=== PATIENT | female | born 1960 | race Caucasian/White ===

== ENCOUNTER → 2020-08-04 10:15 | Outpatient (BNVA) | payer MEDICARE, OTHER, SELFPAY | PROVIDERS: Visit Provider Internal Medicine | DX: E11.59 Type 2 diabetes mellitus with other circulatory complications (principal); I25.10 Atherosclerotic heart disease of native coronary artery without angina pectoris; E11.649 Type 2 diabetes mellitus with hypoglycemia without coma; E11.65 Type 2 diabetes mellitus with hyperglycemia; E78.2 Mixed hyperlipidemia; I10 Essential (primary) hypertension; K75.4 Autoimmune hepatitis; R63.5 Abnormal weight gain; E11.9 Type 2 diabetes mellitus without complications; E78.5 Hyperlipidemia, unspecified; K76.0 Fatty (change of) liver, not elsewhere classified | CPT/HCPCS: 36415; 80053; 80061; 82044; 83036; 84439; 84443; 99204 ==

== ENCOUNTER 2020-08-04 11:26 | Outpatient (CLI) | payer MEDICARE, OTHER, SELFPAY ==
[2020-08-04 12:29] LABS: Creatinine Urine, Random 150 mg/dL (28-217)
[2020-08-04 12:30] LABS: Microalbum Creatinine Ratio Ur 7 mg/dL (0-20); Microalbumin Random Urine 1 ug/dL (0-20)
[2020-08-04 12:47] LABS: Alanine Aminotransferase 57 U/L (0-33); Albumin Level 4.2 g/dL (3.5-5.2); Alkaline Phosphatase 127 IU/L (35-105); Anion Gap 13.5 (5-19); Aspartate Amino Transferase 52 U/L (0-32); Blood Urea Nitrogen 18 mg/dL (8-23); Calcium 9.6 mg/dL (8.5-10.5); Carbon Dioxide 28 mmol/L (22-29); Chloride 105 mmol/L (98-107); Cholesterol 105 mg/dL (0-200); Free T4 Free Thyroxine 1.34 ng/dL (0.82-1.77); Globulin 3.3 g/dL (1.3-4.6); Glomerular Filtration Rate 50.3 mL/min (90-130); Glucose 165 mg/dL (65-115); HDL Cholesterol 35 mg/dL (60-100); LDL Cholesterol Calculated 49 mg/dL (50-129); Osmolality Calculated 300 mOsm/kg (285-295); Potassium 4.5 mmol/L (3.5-5.1); Sodium 142 mmol/L (136-145); Thyroid Stimulating Hormone 2.32 uIU/mL (0.27-4.20); Total Bilirubin 0.5 mg/dL (0.15-1.2); Total Protein 7.5 g/dL (6.6-8.7); Triglycerides 103 mg/dL (0-150)
[2020-08-04 13:29] LABS: Estmated Average Glucose 163; Hemoglobin A1C 7.3 % (4.0-6.0)
== END 2020-08-04 11:27 | disposition home or self-care (01) ==
LOC: LAB 11:32
PROVIDERS: Visit Provider Internal Medicine
DX: E11.9 Type 2 diabetes mellitus without complications (principal); E78.5 Hyperlipidemia, unspecified; K76.0 Fatty (change of) liver, not elsewhere classified; R63.5 Abnormal weight gain
CPT/HCPCS: 36415; 80053; 80061; 82044; 83036; 84439; 84443

== ENCOUNTER 2020-09-26 08:16 | Outpatient (CLI) | payer MEDICARE, OTHER, SELFPAY ==
--- NOTE | 2020-09-26 08:45 | US_ITS ---
WS: [id number] RIGHT UPPER QUADRANT ULTRASOUND HISTORY: K75.4 - Autoimmune hepatitis COMPARISON: None available. Liver: 18.3 cm in length. Mildly enlarged liver with hepatic steatosis. No mass or bile duct dilatati on. Gallbladder: Prior cholecystectomy. CBD: 0.7 cm Pancreas: Normal size and echogenicity. Right kidney: 10.9 cm in length. Normal size and echogenicity. No hydronephrosis or mass. Aorta and IVC: Unremarkable abdominal aorta and IVC. No ascites. US/US liver [id number] IMPRESSION: Mild hepatomegaly. Prior cholecystectomy.
== END 2020-09-26 08:17 | disposition home or self-care (01) ==
LOC: US 08:17
PROVIDERS: PCP Internal Medicine; Visit Provider Internal Medicine
DX: K75.4 Autoimmune hepatitis (principal); R16.0 Hepatomegaly, not elsewhere classified; Z90.49 Acquired absence of other specified parts of digestive tract
CPT/HCPCS: 76705

== ENCOUNTER → 2020-11-04 09:52 | Outpatient (BNVA) | payer MEDICARE, OTHER, SELFPAY | PROVIDERS: PCP Internal Medicine; Visit Provider Internal Medicine | DX: E11.59 Type 2 diabetes mellitus with other circulatory complications (principal); I25.10 Atherosclerotic heart disease of native coronary artery without angina pectoris; E11.649 Type 2 diabetes mellitus with hypoglycemia without coma; E11.65 Type 2 diabetes mellitus with hyperglycemia; Z79.4 Long term (current) use of insulin; E78.2 Mixed hyperlipidemia; I10 Essential (primary) hypertension; K75.4 Autoimmune hepatitis; K76.0 Fatty (change of) liver, not elsewhere classified; R63.5 Abnormal weight gain | CPT/HCPCS: 99215 ==

== ENCOUNTER 2021-07-03 11:27 | Outpatient (CLI) | payer MEDICARE, OTHER, SELFPAY ==
[2021-07-03 12:17] LABS: Estmated Average Glucose 154
[2021-07-03 13:01] LABS: Alanine Aminotransferase 72 U/L (0-33); Albumin Level 3.8 g/dL (3.5-5.2); Alkaline Phosphatase 139 IU/L (35-105); Anion Gap 12.3 (5-19); Aspartate Amino Transferase 53 U/L (0-32); Blood Urea Nitrogen 16 mg/dL (8-23); Calcium 8.9 mg/dL (8.5-10.5); Carbon Dioxide 29 mmol/L (22-29); Chloride 101 mmol/L (98-107); Globulin 3.2 g/dL (1.3-4.6); Glomerular Filtration Rate 84.5 mL/min (90-130); Glucose 110 mg/dL (65-115); Osmolality Calculated 288 mOsm/kg (285-295); Potassium 4.3 mmol/L (3.5-5.1); Sodium 138 mmol/L (136-145); Total Bilirubin 0.4 mg/dL (0.15-1.2)
== END 2021-07-03 11:28 | disposition home or self-care (01) ==
LOC: LAB 11:33
PROVIDERS: PCP Internal Medicine; Visit Provider Internal Medicine
DX: E11.65 Type 2 diabetes mellitus with hyperglycemia (principal); K75.4 Autoimmune hepatitis; R63.5 Abnormal weight gain; Z79.4 Long term (current) use of insulin
CPT/HCPCS: 80053; 83036; 84443

== ENCOUNTER → 2021-08-17 13:15 | Outpatient (BNVA) | payer MEDICARE, OTHER, SELFPAY | PROVIDERS: PCP Internal Medicine; Visit Provider Internal Medicine | DX: E11.65 Type 2 diabetes mellitus with hyperglycemia (principal); E11.59 Type 2 diabetes mellitus with other circulatory complications; I25.10 Atherosclerotic heart disease of native coronary artery without angina pectoris; K76.0 Fatty (change of) liver, not elsewhere classified; R63.5 Abnormal weight gain; E78.2 Mixed hyperlipidemia; K75.4 Autoimmune hepatitis; Z79.4 Long term (current) use of insulin; Z68.36 Body mass index [BMI] 36.0-36.9, adult | CPT/HCPCS: 99214 ==

== ENCOUNTER 2021-10-29 12:37 | Outpatient (CLI) | payer MEDICARE, OTHER, SELFPAY ==
--- NOTE | 2021-10-29 13:00 | MR_ITS ---
WS: [id number] MRI LEFT SHOULDER NONCONTRAST TECHNIQUE: Sagittal T2, coronal T1, T2 and proton density imaging. Axial gradient PDE imaging. CLINICAL INFORMATION: Ongoing shoulder pain despite steroid injections. COMPARISON: None. FINDINGS: Moderate degenerative arthritis AC joint with mild edema and fluid. Mild downsloping acromion. Slight subacromial spurring. Slight impingement on the distal supraspinatus. Tiny insertional cyst tear distal supraspinatus. Tend inopathy distal supraspinatus with mild chronic thinning. Normal infraspinatus. Normal teres minor. N ormal subscapularis. Normal biceps tendon in the bicipital groove. Normal intra-articular biceps tendon. Glenoid labrum ap pears grossly normal. Normal bone marrow signal in the humerus and glenoid. Normal soft tissues. No o ther significant findings. MR/MR shoulder LT con* [id number] IMPRESSION: 1. Moderate degenerative arthritis at the AC joint with mild edema. Small amou nt of fluid at the AC joint. Slight subacromial spurring. 2. Tiny insertional tear at the supraspinatus distally. Mild tendinopathy dist al supraspinatus with chronic thinning. 3. Rotator cuff is otherwise normal. No high-grade tears. 4. Normal biceps tendon in the bicipital groove. Normal intra-articular biceps tendon. 5. Glenoid labrum appears grossly normal. Normal biceps labral anchor. 6. No other significant findings.
== END 2021-10-29 12:38 | disposition home or self-care (01) ==
LOC: RADSHAW 12:47
PROVIDERS: PCP Internal Medicine; Visit Provider Internal Medicine
DX: M19.012 Primary osteoarthritis, left shoulder (principal); M75.102 Unspecified rotator cuff tear or rupture of left shoulder, not specified as traumatic
CPT/HCPCS: 73221

== ENCOUNTER → 2021-12-14 14:54 | Outpatient (BNVA) | payer MEDICARE, OTHER, SELFPAY | PROVIDERS: PCP Internal Medicine; Visit Provider Internal Medicine | DX: E11.65 Type 2 diabetes mellitus with hyperglycemia (principal); E11.59 Type 2 diabetes mellitus with other circulatory complications; I25.10 Atherosclerotic heart disease of native coronary artery without angina pectoris; K76.0 Fatty (change of) liver, not elsewhere classified; R63.5 Abnormal weight gain; E78.2 Mixed hyperlipidemia; K75.4 Autoimmune hepatitis; Z79.4 Long term (current) use of insulin; Z68.37 Body mass index [BMI] 37.0-37.9, adult | CPT/HCPCS: 99214 ==

== ENCOUNTER → 2021-12-31 13:23 | Outpatient (BNVA) | payer MEDICARE, OTHER, SELFPAY | PROVIDERS: PCP Internal Medicine; Visit Provider Internal Medicine | DX: E11.649 Type 2 diabetes mellitus with hypoglycemia without coma (principal); E11.65 Type 2 diabetes mellitus with hyperglycemia; E11.59 Type 2 diabetes mellitus with other circulatory complications; I25.10 Atherosclerotic heart disease of native coronary artery without angina pectoris; K76.0 Fatty (change of) liver, not elsewhere classified; R63.5 Abnormal weight gain; E78.2 Mixed hyperlipidemia; K75.4 Autoimmune hepatitis; Z68.37 Body mass index [BMI] 37.0-37.9, adult; Z79.4 Long term (current) use of insulin | CPT/HCPCS: 99214 ==

== ENCOUNTER → 2022-02-10 13:44 | Outpatient (BNVA) | payer MEDICARE, OTHER, SELFPAY | PROVIDERS: PCP Internal Medicine; Visit Provider Internal Medicine | DX: E11.649 Type 2 diabetes mellitus with hypoglycemia without coma (principal); E11.65 Type 2 diabetes mellitus with hyperglycemia; E11.59 Type 2 diabetes mellitus with other circulatory complications; I25.10 Atherosclerotic heart disease of native coronary artery without angina pectoris; K76.0 Fatty (change of) liver, not elsewhere classified; E78.2 Mixed hyperlipidemia; K75.4 Autoimmune hepatitis; R63.5 Abnormal weight gain; Z68.38 Body mass index [BMI] 38.0-38.9, adult; Z79.4 Long term (current) use of insulin | CPT/HCPCS: 99214 ==

== ENCOUNTER → 2022-04-06 13:24 | Outpatient (BNVA) | payer MEDICARE, OTHER, SELFPAY | PROVIDERS: PCP Internal Medicine; Visit Provider Internal Medicine | DX: E11.65 Type 2 diabetes mellitus with hyperglycemia (principal); E11.649 Type 2 diabetes mellitus with hypoglycemia without coma; E11.59 Type 2 diabetes mellitus with other circulatory complications; E78.2 Mixed hyperlipidemia; I25.10 Atherosclerotic heart disease of native coronary artery without angina pectoris; K76.0 Fatty (change of) liver, not elsewhere classified; R63.5 Abnormal weight gain; K75.4 Autoimmune hepatitis; Z79.4 Long term (current) use of insulin; Z68.38 Body mass index [BMI] 38.0-38.9, adult | CPT/HCPCS: 80053; 80061; 83036; 99214 ==

== ENCOUNTER → 2022-07-13 08:58 | Outpatient (BNVA) | payer MEDICARE, OTHER, SELFPAY | PROVIDERS: PCP Internal Medicine; Visit Provider Internal Medicine | DX: E11.649 Type 2 diabetes mellitus with hypoglycemia without coma (principal); E11.65 Type 2 diabetes mellitus with hyperglycemia; E11.59 Type 2 diabetes mellitus with other circulatory complications; I25.10 Atherosclerotic heart disease of native coronary artery without angina pectoris; K76.0 Fatty (change of) liver, not elsewhere classified; R63.5 Abnormal weight gain; E78.2 Mixed hyperlipidemia; K75.4 Autoimmune hepatitis; Z79.4 Long term (current) use of insulin; Z68.36 Body mass index [BMI] 36.0-36.9, adult | CPT/HCPCS: 99214 ==

== ENCOUNTER 2022-09-16 10:43 | Outpatient (CLI) | payer MEDICARE, OTHER, SELFPAY ==
--- NOTE | 2022-09-16 12:20 | XRR_ITS ---
PROCEDURE INFORMATION: Exam: XR Chest Exam date and time: 09/16/2022 12:21 PM Age: 62 years old Clinical indication: Cough; Prior surgery; Surgery type: Bypass; Patient HX: Screening for copd; Additional info: Chronic cough TECHNIQUE: Imaging protocol: Radiologic exam of the chest. Views: 2 views. COMPARISON: MR shoulder LT wo con* [id number] 10/29/2021 1:13 PM FINDINGS: Lungs: Unremarkable. No consolidation. Pleural spaces: Unremarkable. No pleural effusion. No pneumothorax. Heart/Mediastinum: Heart is not enlarged. The patient has undergone coronary bypass surgery. Bones/joints: Unremarkable. XR/XR chest 2V* [id number] IMPRESSION: No acute abnormality.
== END 2022-09-16 10:44 | disposition home or self-care (01) ==
PROVIDERS: PCP Family Medicine; Visit Provider Family Medicine
DX: R05.3 Chronic cough (principal)
CPT/HCPCS: 71046; 94060; J7613

== ENCOUNTER 2022-10-01 11:54 | Outpatient (CLI) | payer MEDICARE, OTHER, SELFPAY ==
[2022-10-01 12:40] LABS: Estmated Average Glucose 163; Hemoglobin A1C 7.3 % (4.0-6.0)
[2022-10-01 12:48] LABS: Chol HDL Ratio 3.45 mg/dL (0.0-4.40); Cholesterol 107 mg/dL (0-200); HDL Cholesterol 31 mg/dL (60-100); LDL Cholesterol Calculated 59 mg/dL (50-129); Triglycerides 83 mg/dL (0-150)
== END 2022-10-01 11:55 | disposition home or self-care (01) ==
PROVIDERS: PCP Family Medicine; Visit Provider Internal Medicine
DX: E11.649 Type 2 diabetes mellitus with hypoglycemia without coma (principal); E11.9 Type 2 diabetes mellitus without complications; Z79.4 Long term (current) use of insulin
CPT/HCPCS: 36415; 80053; 80061; 83036

== ENCOUNTER → 2022-10-13 09:03 | Outpatient (BNVA) | payer MEDICARE, OTHER, SELFPAY | PROVIDERS: PCP Family Medicine; Visit Provider Internal Medicine | DX: E11.65 Type 2 diabetes mellitus with hyperglycemia (principal); E11.649 Type 2 diabetes mellitus with hypoglycemia without coma; E11.59 Type 2 diabetes mellitus with other circulatory complications; E78.2 Mixed hyperlipidemia; I25.10 Atherosclerotic heart disease of native coronary artery without angina pectoris; K76.0 Fatty (change of) liver, not elsewhere classified; R63.5 Abnormal weight gain; K75.4 Autoimmune hepatitis; Z68.36 Body mass index [BMI] 36.0-36.9, adult; Z79.4 Long term (current) use of insulin | CPT/HCPCS: 99214 ==

== ENCOUNTER → 2023-01-13 17:07 | Outpatient (BNVA) | payer MEDICARE, OTHER, SELFPAY | PROVIDERS: PCP Family Medicine; Visit Provider Nurse Practitioner Family | DX: M94.0 Chondrocostal junction syndrome [Tietze] (principal); E11.65 Type 2 diabetes mellitus with hyperglycemia; E78.5 Hyperlipidemia, unspecified; E78.2 Mixed hyperlipidemia | CPT/HCPCS: 80053; 80061; 83036 ==

== ENCOUNTER → 2023-01-18 11:05 | Outpatient (BNVA) | payer MEDICARE, OTHER, SELFPAY | PROVIDERS: PCP Family Medicine; Visit Provider Internal Medicine | DX: E11.65 Type 2 diabetes mellitus with hyperglycemia (principal); E11.649 Type 2 diabetes mellitus with hypoglycemia without coma; E11.59 Type 2 diabetes mellitus with other circulatory complications; I25.10 Atherosclerotic heart disease of native coronary artery without angina pectoris; K76.0 Fatty (change of) liver, not elsewhere classified; R63.5 Abnormal weight gain; E78.2 Mixed hyperlipidemia; K75.4 Autoimmune hepatitis; Z79.4 Long term (current) use of insulin; Z68.37 Body mass index [BMI] 37.0-37.9, adult | CPT/HCPCS: 99214 ==

== ENCOUNTER → 2023-01-25 13:52 | Outpatient (BNVA) | payer MEDICARE, OTHER, SELFPAY | PROVIDERS: PCP Family Medicine; Visit Provider Family Medicine | DX: R53.83 Other fatigue (principal) | CPT/HCPCS: 84439; 84443 ==

== ENCOUNTER → 2023-04-26 11:58 | Outpatient (BNVA) | payer MEDICARE, OTHER, SELFPAY | PROVIDERS: PCP Family Medicine; Visit Provider Internal Medicine | DX: E11.649 Type 2 diabetes mellitus with hypoglycemia without coma (principal); E78.5 Hyperlipidemia, unspecified; E11.65 Type 2 diabetes mellitus with hyperglycemia | CPT/HCPCS: 80053; 80061; 82043; 83036 ==

== ENCOUNTER → 2023-05-18 07:55 | Outpatient (BNVA) | payer MEDICARE, OTHER, SELFPAY | PROVIDERS: PCP Family Medicine; Visit Provider Internal Medicine | DX: E11.649 Type 2 diabetes mellitus with hypoglycemia without coma (principal); E11.65 Type 2 diabetes mellitus with hyperglycemia; E11.59 Type 2 diabetes mellitus with other circulatory complications; I25.10 Atherosclerotic heart disease of native coronary artery without angina pectoris; K76.0 Fatty (change of) liver, not elsewhere classified; R63.5 Abnormal weight gain; E78.2 Mixed hyperlipidemia; K75.4 Autoimmune hepatitis; Z79.4 Long term (current) use of insulin; Z68.38 Body mass index [BMI] 38.0-38.9, adult | CPT/HCPCS: 99214 ==

== ENCOUNTER → 2023-09-01 14:41 | Outpatient (BNVA) | payer MEDICARE, OTHER, SELFPAY | PROVIDERS: PCP Family Medicine; Visit Provider Family Medicine | DX: M19.012 Primary osteoarthritis, left shoulder (principal); H69.80 Other specified disorders of Eustachian tube, unspecified ear; M35.00 Sjogren syndrome, unspecified | CPT/HCPCS: 80053; 85025; 85651; 86038; 86140; 86200; 86431 ==

== ENCOUNTER → 2023-10-13 12:05 | Outpatient (BNVA) | payer MEDICARE, OTHER, SELFPAY | PROVIDERS: PCP Family Medicine; Visit Provider Internal Medicine | DX: E11.649 Type 2 diabetes mellitus with hypoglycemia without coma (principal) | CPT/HCPCS: 80053; 80061; 82043; 83036 ==

== ENCOUNTER → 2024-01-05 10:53 | Outpatient (BNVA) | payer MEDICARE, OTHER, SELFPAY | PROVIDERS: PCP Family Medicine; Visit Provider Internal Medicine | DX: E11.649 Type 2 diabetes mellitus with hypoglycemia without coma (principal); E11.65 Type 2 diabetes mellitus with hyperglycemia | CPT/HCPCS: 80053; 80061; 82043; 83036 ==

== ENCOUNTER → 2024-01-19 10:34 | Outpatient (BNVA) | payer MEDICARE, OTHER, SELFPAY | PROVIDERS: PCP Family Medicine; Visit Provider Internal Medicine | DX: E11.65 Type 2 diabetes mellitus with hyperglycemia (principal); E11.649 Type 2 diabetes mellitus with hypoglycemia without coma; E78.2 Mixed hyperlipidemia; E11.59 Type 2 diabetes mellitus with other circulatory complications; I25.10 Atherosclerotic heart disease of native coronary artery without angina pectoris; K76.0 Fatty (change of) liver, not elsewhere classified; R63.5 Abnormal weight gain; K75.4 Autoimmune hepatitis; Z79.4 Long term (current) use of insulin; Z68.36 Body mass index [BMI] 36.0-36.9, adult | CPT/HCPCS: 99214 ==

== ENCOUNTER 2024-01-23 11:52 | Emergency (ER) | payer MEDICARE, OTHER, SELFPAY ==
[2024-01-23 11:53] VITALS: BP 145/85; PULSE 63; RESP 17; TEMP 36.8; O2SAT 99; BMI 36.5
--- NOTE | 2024-01-23 12:01 | ED_ITS ---
HPI - Syncope 2 General: Chief Complaint: Syncope Stated Complaint: near syncope Time Seen by Provider: 01/23/24 11:54 Source: patient and EMS Mode of arrival: EMS Limitations: no limitations History of Present Illness: 64-year-old female states she is at [facility] therapy today started feeling lightheaded and had a near syncopal event. States she has had multiple near syncopal events in the past typically when she overdoes it states that she has been rehabbing a shoulder injury physical therapy. She denies any chest pain or headache before the event states she feels completely fine currently. Associated symptoms: Deny abdominal pain, chest pain, fever(s), headache(s) or nausea Review of Systems 2 Const: Denies: fever(s), chills, body aches or change in appetite ENMT: Denies: throat pain or dental pain Card: Reports: pre-syncope; Denies: chest pain Resp: Denies: dyspnea GI: Denies: abdominal pain, nausea, vomiting or diarrhea Musc: Denies: neck pain or back pain Skin/Breast: Denies: rash Neuro: Denies: headache(s) PFSH ED 2 PFSH: Medical History Fibromyalgia Gout Raynaud disease Glaucoma Mixed connective tissue disease Type 2 diabetes mellitus Surgical History History of knee replacement bilateral History of coronary artery bypass graft x 2 H/O heart artery stent x 7 History of cholecystectomy History of hysterectomy History of tonsillectomy Family History Mother Myocardial infarction Grandfather Cancer colon Grandmother Cancer skin Mother Diabetes Father Diabetes Daughter No problems noted. Social History Smoking and tobacco/nicotine status: never used tobacco/nicotine Alcohol intake: current Alcohol intake frequency: holidays/special occasions only Substance/Drug Use: never Physical Exam 2 Const: COMMON NORMALS: no acute distress, patient oriented x3 and healthy appearing HENMT: COMMON NORMALS: normocephalic and atraumatic HEAD & SCALP: n ormocephalic and atraumatic Neck/C-Spine: COMMON NORMALS: full ROM and supple Chest: COMMONS NORMALS: normal inspection of the chest Resp: COMMON NORMALS: normal respiratory effort Cardio: COMMON NORMALS: regular rate, regular rhythm and No murmurs present (Cardio) RATE: regular rate RHYTHM: regular rhythm Extremity: COMMON NORMALS: normal to inspection and full ROM Neuro: COMMON NORMALS: patient oriented x3, moves all extremities and no focal motor deficits Psych: COMMON NORMALS: mental status grossly normal, Normal thought process present and cooperative THOUGHT PROCESS: Normal thought process present Skin: COMMON NORMALS: no rashes or lesions noted and no wounds GENERAL SKIN EXAM: no rashes or lesions noted Course 2 Vital Signs: Vital signs: Vital Signs Temperature 98.3 F 01/23/24 11:53 Pulse Rate 63 01/23/24 11:53 Respiratory Rate 17 01/23/24 11:53 Blood Pressure 145/85 01/23/24 12:05 Pulse Oximetry 97 01/23/24 12:05 Oxygen Delivery Me thod Room Air 01/23/24 12:05 MDM - Syncope Medical Decision Making Patient presents here with syncopal events likely a vagal episode she is well- appearing here has no complaints here blood work here is all normal she is stable for discharge she is follow-up with PCP and return if worsening Medical Records I reviewed the patient's medical records. Lab Data I reviewed the patient's lab results. 01/23/24 12:08 01/23/24 12:08 Laboratory Results WBC 6.87 10^3/uL (3.29-11.43) 01/23/24 12:08 RBC 5.11 10^6/uL (3.85-5.65) 01/23/24 12:08 Hgb 15.00 g/dL (11.27-16.99) 01/23/24 12:08 Hct 46.0 % (36-47) 01/23/24 12:08 MCV 90.0 fl (85-98) 01/23/24 12:08 MCH 29.4 pg (27-33) 01/23/24 12:08 MCHC 32.6 g/dL (30-55) 01/23/24 12:08 RDW 12.9 % (12.1-15.1) 01/23/24 12:08 Plt Count 258 10^3/cmm (157-399) 01/23/24 12:08 MPV 10.8 fL (7.4-10.4) H 01/23/24 12:08 Neut % (Auto) 72.2 % 01/23/24 12:08 Lymph % (Auto) 18.2 % 01/23/24 12:08 [place] % (Auto) 7.1 % 01/23/24 12:08 Eos % (Auto) 1.5 % 01/23/24 12:08 Baso % (Auto) 0.6 % 01/23/24 12:08 Neut # (Auto) 4.96 10^3/uL (1.8-7.7) 01/23/24 12:08 Lymph # (Auto) 1.3 10^3/uL (0.8-4.8) 01/23/24 12:08 [place] # (Auto) 0.5 10^3/uL (0.2-0.9) 01/23/24 12:08 Eos # (Auto) 0.1 10^3/uL (0.0-0.8) 01/23/24 12:08 Baso # (Auto) 0.0 10^3/uL (0.0-0.1) 01/23/24 12:08 Nucleated RBC % (auto) 0 % 01/23/24 12:08 Nucleated RBCs # 0.0 /100WBC 01/23/24 12:08 Sodium 135 mmol/L (136-145) L 01/23/24 12:08 Potassium 4.4 mmol/L (3.5-5.1) 01/23/24 12:08 Chloride 101 mmol/L (98-107) 01/23/24 12:08 Carbon Dioxide 26 mmol/L (22-29) 01/23/24 12:08 Anion Gap 12.4 (5-19) 01/23/24 12:08 BUN 22 mg/dL (8-23) 01/23/24 12:08 Creatinine 1.0 mg/dL (0.5-0.9) H 01/23/24 12:08 GFR Calculation 55.5 mL/min (90-130) L 01/23/24 12:08 Glucose 145 mg/dL (65-115) H 01/23/24 12:08 Calculated Osmolality 286 mOsm/kg (285-295) 01/23/24 12:08 Calcium 8.8 mg/dL (8.5-10.5) 01/23/24 12:08 Total Bilirubin 0.9 mg/dL (0.15-1.2) 01/23/24 12:08 AST 21 U/L (0-32) 01/23/24 12:08 ALT 26 U/L (0-33) 01/23/24 12:08 Alkaline Phosphatase 106 U/L (35-105) H 01/23/24 12:08 Total Protein 6.9 g/dL (6.6-8.7) 01/23/24 12:08 Albumin 3.5 g/dL (3.5-5.2) 01/23/24 12:08 Globulin 3.4 g/dL (1.3-4.6) 01/23/24 12:08 No radiology studies performed this visit EKG Data EKG 1: I personally reviewed and interpreted this EKG as follows: EKG interpretation date: 01/23/24 EKG interpretation time: 12:02 Interpretation: nsr hr [address] or t wave abnormalities qrs 93 qtc 425 Discharge Plan Discharge Patient Disposition: Home Condition: Stable Prescriptions: No Action aspirin 81 mg tablet,delayed release (DR/EC) 81 mg PO QAM nitroglycerin 0.4 mg tablet, sublingual 0.4 mg sublingual Q5M PRN (Reason: chest pain) Qty: 25 6RF Rx Instructions: do not exceed 3 doses per episode (DME) blood-glucose meter [Contour Next Glucose Meter] Kit See Rx Instructions .Route Qty: 1 0RF Rx Instructions: As directed (DME) Contour Next Test Strips Strip See Rx Instructions .Route Qty: 270 3RF Rx Instructions: test blood sugar 2-3 times a day (DME) pen needle, diabetic [Ultra-Thin II Ins Pen [place]] 29 gauge x 1/2 needle See Rx Instructions .Route Qty: 100 1RF Rx Instructions: As directed ranolazine 500 mg tablet extended release 12 hr 500 mg PO BID hydrocodone-acetaminophen 5-325 mg tablet 1 tab PO Q4H PRN (Reason: pain) 7 Days Qty: 30 0RF atorvastatin 40 mg tablet 40 mg PO BEDTIME levocetirizine 5 mg tablet 5 mg PO DAILY Qty: 90 3RF (DME) Dexcom G6 Academic Associate Misc See Rx Instructions .Route Qty: 1 0RF Rx Instructions: Check BS 4-6 times a day. (DME) Dexcom G6 Sensor Device See Rx Instructions .Route Qty: 3 3RF Rx Instructions: Change every 10 days. (DME) Dexcom G6 Transmitter Device See Rx Instructions .Route Qty: 1 3RF Rx Instructions: Change every 90 days. isosorbide mononitrate 120 mg tablet extended release 24 hr 120 mg PO QAM Pepcid AC 20 mg Tablet 20 mg PO QAM Flonase 50 mcg/actuation [place],Suspension 1 spray INTRANASAL QAM Rx Instructions: administer into each nostril azathioprine 50 mg tablet 50 mg PO QAM pantoprazole 40 mg tablet,delayed release (DR/EC) 40 mg PO QAM Novolog FlexPen U-100 Insulin 100 unit/mL (3 mL) insulin pen See Rx Instructions .ROUTE .COMPLEX Rx Instructions: sliding scale with meals metoprolol tartrate 25 mg tablet 25 mg PO QPM Tresiba FlexTouch U-200 200 unit/mL (3 mL) insulin pen 100 unit SUBCUT BEDTIME Discharge Orders: Discharge ED (Routine); Ordered 01/23/24 Ordered By: Becca Cartagena Referrals: Carie Gordillo DO [Primary Care Provider] - Discharge Diet: Advance as tolerated Discharge Activity: Resume usual activity Patient Instructions: Syncope (ED) Coding Level of Care Code 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
--- NOTE | 2024-01-23 12:02 | ECG_ITS ---
[facility] Test Date: 2024-01-23 Pat Name: Olinda Manrique Department: Room: Gender: Female Manager Transportation: : 1960 Requested By: Becca Cartagena Order Number: [id number] Michael MD: Anam Torres M.D. Measurements Intervals [place] Rate: 64 P: 51 [place]: 166 QRS: -21 QRSD: 93 T: 53 QT: 415 QTc: 431 Interpretive Statements SINUS RHYTHM POSSIBLE LATERAL MYOCARDIAL INFARCTION , PROBABLY OLD [30 ms Q WAVE IN I/aVL/V5/V6] No previous ECG available for comparison Electronically Signed On 01-23-2024 13:11:54 CDT by Anam Torres M.D. [id number]
[2024-01-23 12:05] VITALS: BP 145/85; O2SAT 97
[2024-01-23 12:38] LABS: Basophils % 0.6 %; Eosinophils # 0.1 10^3/uL (0.0-0.8); Eosinophils % 1.5 %; Lymphocytes # 1.3 10^3/uL (0.8-4.8); Lymphocytes % 18.2 %; Mean Corpuscular HGB Conc 32.6 g/dL (30-55); Mean Corpuscular Hemoglobin 29.4 pg (27-33); Mean Platelet Volume 10.8 fL (7.4-10.4); Monocytes # 0.5 10^3/uL (0.2-0.9); Monocytes % 7.1 %; Neutrophils # 4.96 10^3/uL (1.8-7.7); Neutrophils % 72.2 %; Nucleated Red Blood Cells % 0 %; Platelet Count 258 10^3/cmm (157-399); Red Blood Count 5.11 10^6/uL (3.85-5.65); Red Cell Distribution Width 12.9 % (12.1-15.1); White Blood Count 6.87 10^3/uL (3.29-11.43)
--- NOTE | 2024-01-23 12:46 | PC.PHAR ---
Addendum entered by Linda Yeboah 01/23/24 12:53: pt states no longer takes lasix 20mg daily filled 10/24/23 90d/s pt states was dced a few months ago Original Note: pt states she takes care of her own medications-ext shows metoprolol tartrate 50mg bid filled 12/29/23 90d/s pt states saw dr since being filled and was told to take 25mg bid for 1 week and then go to 25mg daily-pt states takes 25mg qpm-pt states she uses a ss with meals with novolg flesxxpen u-100-pt states she uses tresiba flextouch u-200 100 units hs ext shows last filled 01/02/24 84d/s 130 units daily-
[2024-01-23 12:47] LABS: Alanine Aminotransferase 26 U/L (0-33); Albumin Level 3.5 g/dL (3.5-5.2); Alkaline Phosphatase 106 U/L (35-105); Anion Gap 12.4 (5-19); Aspartate Amino Transferase 21 U/L (0-32); Blood Urea Nitrogen 22 mg/dL (8-23); Calcium 8.8 mg/dL (8.5-10.5); Carbon Dioxide 26 mmol/L (22-29); Chloride 101 mmol/L (98-107); Creatinine Clr Calc Pharmacy 69.2204; Globulin 3.4 g/dL (1.3-4.6); Glomerular Filtration Rate 55.5 mL/min (90-130); Glucose 145 mg/dL (65-115); Osmolality Calculated 286 mOsm/kg (285-295); Potassium 4.4 mmol/L (3.5-5.1); Sodium 135 mmol/L (136-145); Total Bilirubin 0.9 mg/dL (0.15-1.2); Total Protein 6.9 g/dL (6.6-8.7)
== END 2024-01-23 13:20 | disposition home or self-care (01) ==
PROVIDERS: Emergency Provider Emergency Medicine; PCP Family Medicine
DX: R55 Syncope and collapse (principal); Z79.82 Long term (current) use of aspirin; Z79.4 Long term (current) use of insulin; E11.9 Type 2 diabetes mellitus without complications; Z95.1 Presence of aortocoronary bypass graft
CPT/HCPCS: 80053; 85025; 93005; 99284

== ENCOUNTER → 2024-02-06 08:57 | Outpatient (BNVA) | payer MEDICARE, OTHER, SELFPAY | PROVIDERS: PCP Family Medicine; Visit Provider Internal Medicine Rheumatology | DX: M05.79 Rheumatoid arthritis with rheumatoid factor of multiple sites without organ or systems involvement (principal); Z79.899 Other long term (current) drug therapy; M35.00 Sjogren syndrome, unspecified; K75.4 Autoimmune hepatitis | CPT/HCPCS: 99204 ==

== ENCOUNTER → 2024-04-16 10:02 | Outpatient (BNVA) | payer MEDICARE, OTHER, SELFPAY | PROVIDERS: PCP Family Medicine; Visit Provider Family Medicine | DX: R76.8 Other specified abnormal immunological findings in serum (principal); E11.649 Type 2 diabetes mellitus with hypoglycemia without coma; E11.65 Type 2 diabetes mellitus with hyperglycemia; E78.2 Mixed hyperlipidemia | CPT/HCPCS: 80053; 80061; 82043; 83036; 86160; 86162; 86235; 86255; 86376 ==

== ENCOUNTER → 2024-06-06 11:18 | Outpatient (BNVA) | payer MEDICARE, OTHER, SELFPAY | PROVIDERS: PCP Family Medicine; Visit Provider Family Medicine | DX: R47.02 Dysphasia (principal); R13.10 Dysphagia, unspecified | CPT/HCPCS: 80053; 85025 ==

== ENCOUNTER → 2024-07-05 07:54 | Outpatient (BNVA) | payer MEDICARE, OTHER, SELFPAY | PROVIDERS: PCP Family Medicine; Visit Provider Internal Medicine | DX: E11.65 Type 2 diabetes mellitus with hyperglycemia (principal); E11.649 Type 2 diabetes mellitus with hypoglycemia without coma; E11.59 Type 2 diabetes mellitus with other circulatory complications; I25.10 Atherosclerotic heart disease of native coronary artery without angina pectoris; K76.0 Fatty (change of) liver, not elsewhere classified; R63.5 Abnormal weight gain; E78.2 Mixed hyperlipidemia; K75.4 Autoimmune hepatitis; Z79.4 Long term (current) use of insulin; Z79.85 Long-term (current) use of injectable non-insulin antidiabetic drugs; Z68.37 Body mass index [BMI] 37.0-37.9, adult | CPT/HCPCS: 99214 ==

== ENCOUNTER → 2024-07-24 08:05 | Outpatient (BNVA) | payer MEDICARE, OTHER, SELFPAY | PROVIDERS: PCP Family Medicine; Visit Provider Internal Medicine | DX: E11.649 Type 2 diabetes mellitus with hypoglycemia without coma (principal); E11.65 Type 2 diabetes mellitus with hyperglycemia; E11.59 Type 2 diabetes mellitus with other circulatory complications; I25.10 Atherosclerotic heart disease of native coronary artery without angina pectoris; K76.0 Fatty (change of) liver, not elsewhere classified; R63.5 Abnormal weight gain; E78.2 Mixed hyperlipidemia; K75.4 Autoimmune hepatitis; Z79.84 Long term (current) use of oral hypoglycemic drugs; Z79.85 Long-term (current) use of injectable non-insulin antidiabetic drugs; Z68.37 Body mass index [BMI] 37.0-37.9, adult | CPT/HCPCS: 99214 ==

== ENCOUNTER → 2024-10-03 15:37 | Outpatient (BNVA) | payer MEDICARE, OTHER, SELFPAY | PROVIDERS: PCP Family Medicine; Visit Provider Family Medicine | DX: E11.649 Type 2 diabetes mellitus with hypoglycemia without coma (principal); E11.65 Type 2 diabetes mellitus with hyperglycemia | CPT/HCPCS: 80053; 80061; 82043; 83036 ==

== ENCOUNTER → 2024-10-08 08:07 | Outpatient (BNVA) | payer MEDICARE, OTHER, SELFPAY | PROVIDERS: PCP Family Medicine; Visit Provider Internal Medicine | DX: E11.65 Type 2 diabetes mellitus with hyperglycemia (principal); E11.649 Type 2 diabetes mellitus with hypoglycemia without coma; E78.2 Mixed hyperlipidemia; E11.59 Type 2 diabetes mellitus with other circulatory complications; I25.10 Atherosclerotic heart disease of native coronary artery without angina pectoris; K76.0 Fatty (change of) liver, not elsewhere classified; R63.5 Abnormal weight gain; K75.4 Autoimmune hepatitis; Z79.4 Long term (current) use of insulin; Z68.34 Body mass index [BMI] 34.0-34.9, adult; Z79.85 Long-term (current) use of injectable non-insulin antidiabetic drugs | CPT/HCPCS: 99214 ==

== ENCOUNTER → 2025-01-04 13:17 | Outpatient (BNVA) | payer MEDICARE, OTHER, SELFPAY | PROVIDERS: PCP Family Medicine; Visit Provider Family Medicine | DX: E11.649 Type 2 diabetes mellitus with hypoglycemia without coma (principal); E11.65 Type 2 diabetes mellitus with hyperglycemia; E78.2 Mixed hyperlipidemia | CPT/HCPCS: 80053; 80061; 82043; 83036 ==

== ENCOUNTER → 2025-01-09 10:42 | Outpatient (BNVA) | payer MEDICARE, OTHER, SELFPAY | PROVIDERS: PCP Family Medicine; Visit Provider Internal Medicine | DX: E11.649 Type 2 diabetes mellitus with hypoglycemia without coma (principal); E11.65 Type 2 diabetes mellitus with hyperglycemia; E11.59 Type 2 diabetes mellitus with other circulatory complications; I25.10 Atherosclerotic heart disease of native coronary artery without angina pectoris; K76.0 Fatty (change of) liver, not elsewhere classified; R63.5 Abnormal weight gain; E78.2 Mixed hyperlipidemia; K75.4 Autoimmune hepatitis | CPT/HCPCS: 99214 ==

== ENCOUNTER → 2025-01-29 13:34 | Outpatient (BNVA) | payer MEDICARE, OTHER, SELFPAY | PROVIDERS: PCP Family Medicine; Visit Provider Family Medicine | DX: K75.4 Autoimmune hepatitis (principal) | CPT/HCPCS: 80076; 82657 ==

== ENCOUNTER → 2025-02-04 12:36 | Outpatient (BNVA) | payer MEDICARE, OTHER, SELFPAY | PROVIDERS: PCP Family Medicine; Visit Provider Internal Medicine Rheumatology | DX: M05.79 Rheumatoid arthritis with rheumatoid factor of multiple sites without organ or systems involvement (principal); K75.4 Autoimmune hepatitis; Z79.899 Other long term (current) drug therapy; M35.00 Sjogren syndrome, unspecified | CPT/HCPCS: 82085; 82550; 99214 ==

== ENCOUNTER 2025-03-04 13:28 | Outpatient (RCR) | payer MEDICARE, OTHER, SELFPAY | END 2025-03-16 23:59 | disposition home or self-care (01) | LOC: SPT 13:28 | PROVIDERS: PCP Family Medicine; Visit Provider Family Medicine | DX: M21.371 Foot drop, right foot (principal); M62.81 Muscle weakness (generalized); R53.1 Weakness | CPT/HCPCS: 97161 ==

== ENCOUNTER → 2025-06-24 08:12 | Outpatient (BNVA) | payer MEDICARE, OTHER, SELFPAY | PROVIDERS: PCP Family Medicine; Visit Provider Dermatology | DX: L70.0 Acne vulgaris (principal); D22.5 Melanocytic nevi of trunk; L91.8 Other hypertrophic disorders of the skin; L82.1 Other seborrheic keratosis; L40.0 Psoriasis vulgaris; T69.1XXA Chilblains, initial encounter; X31.XXXA Exposure to excessive natural cold, initial encounter; X58.XXXA Exposure to other specified factors, initial encounter | CPT/HCPCS: 80053; 80061; 82043; 83036; 99204 ==

== ENCOUNTER → 2025-07-10 11:17 | Outpatient (BNVA) | payer MEDICARE, OTHER, SELFPAY | PROVIDERS: PCP Family Medicine; Visit Provider Internal Medicine | DX: E11.649 Type 2 diabetes mellitus with hypoglycemia without coma (principal); E11.59 Type 2 diabetes mellitus with other circulatory complications; I25.10 Atherosclerotic heart disease of native coronary artery without angina pectoris; K76.0 Fatty (change of) liver, not elsewhere classified; R63.5 Abnormal weight gain; E78.2 Mixed hyperlipidemia; K75.4 Autoimmune hepatitis | CPT/HCPCS: 99214 ==

== ENCOUNTER → 2025-08-02 08:36 | Outpatient (BNVA) | payer MEDICARE, OTHER, SELFPAY | PROVIDERS: PCP Family Medicine; Visit Provider Dermatology | DX: L30.9 Dermatitis, unspecified (principal); X31.XXXA Exposure to excessive natural cold, initial encounter; L40.0 Psoriasis vulgaris | CPT/HCPCS: 11102; 80053; 81000; 99214 ==